=== PATIENT | male | born 1945 | race Caucasian/White ===

== ENCOUNTER → 2023-05-22 | Outpatient (CLI) | payer MEDICARE ==
[~2023-05-22] MED LIST: E-Z-GAS II EFFERVESCENT PACKET (SODIUM BICARB./CITRIC ACID/SIMETHICONE) As Ordered ONE; E-Z-HD 98% w/w 340GM SUSP BTL As Ordered ONE; E-Z-PAQUE 96% w/w SUSP 176GM BTL As Ordered ONE
== END ==
LOC: M RAD 10:55
PROVIDERS: ATTEND Registered Nurse
DX: R13.10 Dysphagia, unspecified (principal); K44.9 Diaphragmatic hernia without obstruction or gangrene; K22.2 Esophageal obstruction; R93.3 Abnormal findings on diagnostic imaging of other parts of digestive tract; Q39.4 Esophageal web

== ENCOUNTER 2023-07-02 13:14 | Emergency (ER) | payer MEDICARE ==
[~2023-07-02] VITALS: Ht 170.2 cm; Wt 51.6 kg
[2023-07-02 13:17] VITALS: BP 131/80; TEMP 99.1; O2SAT 97
[2023-07-02 15:40] LABS: BASO # 0.1 10^3/uL (0.0-0.2); BASO % 0.9 % (0.0-1.0); EOS # 0.3 10^3/uL (0.0-0.5); EOS % 3.4 % (0.0-3.0); HEMOGLOBIN 12.1 g/dl (13.5-17.5); LYMPH # 1.8 10^3/uL (1.5-5.0); LYMPH % 23.2 % (24.0-44.0); MEAN CORPUSCULAR HEMOGLOBIN 32.2 pg (27.0-33.0); MEAN CORPUSCULAR HGB CONC 33.6 g/dl (32.0-36.5); MEAN CORPUSCULAR VOLUME 95.7 fl (80.0-96.0); MONO # 0.6 10^3/uL (0.0-0.8); MONO % 7.9 % (2.0-8.0); NEUTROPHILS # 4.9 10^3/uL (1.5-8.5); NEUTROPHILS % 64.2 % (36.0-66.0); PLATELET COUNT, AUTOMATED 427 10^3/uL (150-450); RED BLOOD COUNT 3.76 10^6/uL (4.30-6.10); WHITE BLOOD COUNT 7.6 10^3/uL (4.0-10.0)
[2023-07-02 15:59] LABS: ALBUMIN 2.7 G/DL (3.2-5.2); ALKALINE PHOSPHATASE 76 U/L (46-116); ALT/SGPT 16 U/L (7.0-40); AST/SGOT 15 U/L (<34); BILIRUBIN,TOTAL 0.2 MG/DL (0.3-1.2); BLOOD UREA NITROGEN 23 MG/DL (9-23); CALCIUM LEVEL 8.6 MG/DL (8.3-10.6); CARBON DIOXIDE LEVEL 26 MMOL/L (20-31); CHLORIDE LEVEL 105 MMOL/L (98-107); CREATININE FOR GFR 0.81 MG/DL (0.70-1.30); GLOMERULAR FILTRATION RATE > 60.0 (>42); GLUCOSE, FASTING 106 MG/DL (74-106); POTASSIUM SERUM 4.2 MMOL/L (3.5-5.1); SODIUM LEVEL 138 MMOL/L (136-145); TOTAL PROTEIN 6.3 G/DL (5.7-8.2)
[2023-07-02] MEDS ORDERED: BACITRACIN OINTMENT 30GM TUBE TOP ONE (16:45)
== END 2023-07-02 16:55 | disposition home or self-care (01) ==
LOC: M ED 13:14
DX: Z48.02 Encounter for removal of sutures (principal); Z43.1 Encounter for attention to gastrostomy; F17.200 Nicotine dependence, unspecified, uncomplicated; J45.909 Unspecified asthma, uncomplicated

== ENCOUNTER → 2023-08-02 | Outpatient (CLI) | payer MEDICARE ==
[~2023-08-02] MED LIST changes: +ASPI1TAB77 PO; +ATOR40TA75 PO; +CVS1CAP2 PO; -E-Z-GAS II EFFERVESCENT PACKET (SODIUM BICARB./CITRIC ACID/SIMETHICONE) As Ordered ONE; -E-Z-HD 98% w/w 340GM SUSP BTL As Ordered ONE; -E-Z-PAQUE 96% w/w SUSP 176GM BTL As Ordered ONE; +ECOT81TA5 PO; +GNP650TA8 PO; +METO1TAB87 PO; +ONDA-84 PO; +PROC10TA5 PO
== END ==
LOC: M ONCR 12:47
PROVIDERS: ATTEND General Practice
DX: C15.5 Malignant neoplasm of lower third of esophagus (principal); F17.210 Nicotine dependence, cigarettes, uncomplicated; Z71.2 Person consulting for explanation of examination or test findings; Z79.82 Long term (current) use of aspirin; Z79.899 Other long term (current) drug therapy; Z80.0 Family history of malignant neoplasm of digestive organs; Z80.42 Family history of malignant neoplasm of prostate; Z80.8 Family history of malignant neoplasm of other organs or systems; Z88.0 Allergy status to penicillin; Z88.1 Allergy status to other antibiotic agents

== ENCOUNTER → 2023-08-06 | Outpatient (CLI) | payer MEDICARE ==
[~2023-08-06] MED LIST changes: +SENN-84 PO; +SUCR1TA PO
== END ==
LOC: M PLARAD 11:40
PROVIDERS: ATTEND Thoracic Surgery (Cardiothoracic Vascular Surgery)
DX: R59.0 Localized enlarged lymph nodes (principal); C15.5 Malignant neoplasm of lower third of esophagus
CPT/HCPCS: 78815; A9552

== ENCOUNTER → 2023-08-07 | Outpatient (CLI) | payer MEDICARE | LOC: M ONCR 09:58 | PROVIDERS: ATTEND General Practice | DX: C15.5 Malignant neoplasm of lower third of esophagus (principal); C77.2 Secondary and unspecified malignant neoplasm of intra-abdominal lymph nodes; F17.210 Nicotine dependence, cigarettes, uncomplicated; Z71.2 Person consulting for explanation of examination or test findings; Z79.82 Long term (current) use of aspirin; Z79.899 Other long term (current) drug therapy; Z88.0 Allergy status to penicillin; Z88.1 Allergy status to other antibiotic agents; Z92.21 Personal history of antineoplastic chemotherapy; Z95.828 Presence of other vascular implants and grafts ==

== ENCOUNTER → 2023-08-24 | Outpatient (CLI) | payer MEDICARE ==
[~2023-08-24] MED LIST changes: +FURO40TA2 PO; +OLAN1TAB16 PO; +SENN-183 PO; -SENN-84 PO
== END ==
LOC: M RAD 13:15
PROVIDERS: ATTEND Internal Medicine Hematology & Oncology
DX: C15.9 Malignant neoplasm of esophagus, unspecified (principal); R60.0 Localized edema

== ENCOUNTER 2023-09-30 13:16 | Inpatient (IN) | payer MEDICARE ==
[~2023-09-30] VITALS: Ht 170.2 cm; Wt 46.3 kg
[~2023-09-30 13:16] MED LIST changes: +CIPR500T39 PO; +COMBAER6 INH; +MIRT-84 PO; +TRAM50TA2 PO
[2023-09-30 14:33] LABS: BASO % 0.2 % (0.0-1.0); EOS % 0.4 % (0.0-3.0); HEMATOCRIT 35.9 % (42.0-52.0); HEMOGLOBIN 12.4 g/dl (13.5-17.5); LYMPH # 0.9 10^3/uL (1.5-5.0); LYMPH % 10.3 % (24.0-44.0); MEAN CORPUSCULAR HEMOGLOBIN 31.6 pg (27.0-33.0); MEAN CORPUSCULAR HGB CONC 34.5 g/dl (32.0-36.5); MEAN CORPUSCULAR VOLUME 91.6 fl (80.0-96.0); MONO # 0.8 10^3/uL (0.0-0.8); MONO % 9.7 % (2.0-8.0); NEUTROPHILS # 6.8 10^3/uL (1.5-8.5); NEUTROPHILS % 78.9 % (36.0-66.0); PLATELET COUNT, AUTOMATED 279 10^3/uL (150-450); RED BLOOD COUNT 3.92 10^6/uL (4.30-6.10); WHITE BLOOD COUNT 8.6 10^3/uL (4.0-10.0)
[2023-09-30 14:44] LABS: LIPASE 25 U/L (12-53)
[2023-09-30 14:45] LABS: CPK CREATINE PHOSPHOKINASE 40 U/L (46-171)
[2023-09-30 14:52] LABS: INR 1.32; PROTHROMBIN TIME 15.9 SECONDS (12.5-14.5)
[2023-09-30 15:01] LABS: ALBUMIN 2.2 G/DL (3.2-5.2); ALKALINE PHOSPHATASE 101 U/L (46-116); ALT/SGPT 21 U/L (7.0-40); AST/SGOT 23 U/L (<34); BILIRUBIN,DIRECT 0.2 MG/DL (<0.4); BILIRUBIN,TOTAL 0.5 MG/DL (0.3-1.2); BLOOD UREA NITROGEN 15 MG/DL (9-23); CALCIUM LEVEL 7.7 MG/DL (8.3-10.6); CARBON DIOXIDE LEVEL 35 MMOL/L (20-31); CHLORIDE LEVEL 88 MMOL/L (98-107); CK-MB VALUE MASS 1.3 NG/ML (<3.6); CREATININE FOR GFR 0.88 MG/DL (0.70-1.30); GLOMERULAR FILTRATION RATE > 60.0 (>42); GLUCOSE, FASTING 136 MG/DL (74-106); MB/CK RELATIVE INDEX 3.25 (< OR =4); POTASSIUM SERUM 2.3 MMOL/L (3.5-5.1); SODIUM LEVEL 128 MMOL/L (136-145); TOTAL PROTEIN 5.5 G/DL (5.7-8.2)
[2023-09-30] MEDS ORDERED: ISOVUE-370 76% 100ML VIAL As Ordered ONE (16:26)
[2023-09-30] MEDS: KCL 10MEQ/100ML SWI (KRUN) 10 MEQ in IV 1 EA IV ONE (16:43)
[2023-09-30 17:14] LABS: CK-MB VALUE MASS 1.3 NG/ML (<3.6)
[2023-09-30 17:16] LABS: MB/CK RELATIVE INDEX 3.42 (< OR =4)
[2023-09-30 17:47] LABS: RSV AMPLIFICATION NEGATIVE (NEGATIVE)
[2023-09-30] MEDS: LevoFLOXacin IV 750 MG in IV 1 EA IV ONE (17:59)
[2023-09-30] MEDS ORDERED: ATOR1TAB21 PO (18:11)
[2023-09-30] MEDS ORDERED: FURO40TA2 PO (18:11)
[2023-09-30] MEDS ORDERED: SENN8.6T28 PO (18:15)
[2023-09-30] MEDS ORDERED: COMBAER6 INH (18:15)
[2023-09-30] MEDS ORDERED: SUCR1TAB56 PO (18:15)
[2023-09-30] MEDS ORDERED: MIRT-84 PO (18:15)
[2023-09-30] MEDS ORDERED: OLAN1TAB16 PO (18:17)
[2023-09-30] MEDS ORDERED: LISI10TA22 PO (18:17)
[2023-09-30] MEDS ORDERED: BISO5TAB14 PO (18:17)
[2023-09-30] MEDS ORDERED: HOME MED LIST COMPLETE! XX SCH (18:35)
[2023-09-30 19:19] LABS: MAGNESIUM LEVEL 1.4 MG/DL (1.8-2.4)
[2023-09-30 19:28] LABS: PROCALCITONIN 0.15 ng/ml
[2023-09-30] MEDS: methylPREDNISolone 40MG 1ML VIAL IV SCH (19:59)
[2023-09-30] MEDS: PIPERACILLIN/TAZOBACTAM SOD 3.375 GM in D5W MINI-BAG PLUS 50 ML IV SCH (19:59)
[2023-09-30] MEDS: KCL 10MEQ/100ML SWI (KRUN) 10 MEQ in IV 1 EA IV SCH (20:00)
[2023-09-30] MEDS ORDERED: BUDESONIDE 0.5 MG/2 ML INHALATION SUSPENSION NEB SCH (20:00)
[2023-09-30] MEDS: ALBUTEROL SULFATE 2.5MG/0.5ML INH NEB SOLN NEB SCH (20:15)
[2023-09-30 22:10] LABS: HEMATOCRIT 35.9 % (42.0-52.0); HEMOGLOBIN 12.2 g/dl (13.5-17.5); MEAN CORPUSCULAR HEMOGLOBIN 31.5 pg (27.0-33.0); MEAN CORPUSCULAR VOLUME 92.8 fl (80.0-96.0); PLATELET COUNT, AUTOMATED 287 10^3/uL (150-450); RED BLOOD COUNT 3.87 10^6/uL (4.30-6.10); WHITE BLOOD COUNT 7.5 10^3/uL (4.0-10.0)
[2023-09-30 22:14] VITALS: BP 168/80; TEMP 97.9; O2SAT 94
[2023-09-30] MEDS: OLANZapine 5 MG TAB PO SCH (22:54)
[2023-09-30] MEDS: MAGNESIUM OXIDE 400MG TAB (MAG-OX) PO ONE (22:54)
[2023-09-30] MEDS: SUCRALFATE 1 GM TAB PO SCH (22:54)
[2023-09-30] MEDS: POTASSIUM CHLORIDE 10MEQ SR TABLET PO SCH (22:54)
[2023-09-30] MEDS: MIRTAZAPINE 15 MG TAB PO SCH (22:55)
[2023-09-30] MEDS: SENOKOT S TAB PO SCH (22:58)
[2023-09-30] MEDS: bisoproloL fumarate 5 MG TAB PO SCH (22:58)
[2023-09-30 23:00] VITALS: O2SAT 97
[2023-09-30 23:16] LABS: ALBUMIN 2.2 G/DL (3.2-5.2); ALKALINE PHOSPHATASE 102 U/L (46-116); ALT/SGPT 22 U/L (7.0-40); AST/SGOT 24 U/L (<34); BILIRUBIN,TOTAL 0.6 MG/DL (0.3-1.2); BLOOD UREA NITROGEN 15 MG/DL (9-23); CALCIUM LEVEL 7.7 MG/DL (8.3-10.6); CARBON DIOXIDE LEVEL 36 MMOL/L (20-31); CHLORIDE LEVEL 87 MMOL/L (98-107); CREATININE FOR GFR 0.91 MG/DL (0.70-1.30); GLOMERULAR FILTRATION RATE > 60.0 (>42); GLUCOSE, FASTING 119 MG/DL (74-106); MAGNESIUM LEVEL 1.4 MG/DL (1.8-2.4); POTASSIUM SERUM 2.4 MMOL/L (3.5-5.1); SODIUM LEVEL 128 MMOL/L (136-145); TOTAL PROTEIN 5.7 G/DL (5.7-8.2)
[2023-10-01] VITALS (12 sets, daily range): BP systolic 108–120; BP diastolic 65–75; TEMP 97.2–98.4; O2SAT 91–96
[2023-10-01] MEDS: ONDANSETRON 4MG 2ML VIAL IV PRN (02:26)
[2023-10-01 04:07] LABS: BLOOD UREA NITROGEN 15 MG/DL (9-23); CALCIUM LEVEL 7.7 MG/DL (8.3-10.6); CARBON DIOXIDE LEVEL 37 MMOL/L (20-31); CHLORIDE LEVEL 90 MMOL/L (98-107); CREATININE FOR GFR 0.92 MG/DL (0.70-1.30); GLOMERULAR FILTRATION RATE > 60.0 (>42); GLUCOSE, FASTING 144 MG/DL (74-106); MAGNESIUM LEVEL 1.5 MG/DL (1.8-2.4); POTASSIUM SERUM 2.9 MMOL/L (3.5-5.1); SODIUM LEVEL 130 MMOL/L (136-145)
[2023-10-01] MEDS: MAG SULF 1GM/100ML (MAG RUN) 1 GM in IV 1 EA IV SCH (04:44)
[2023-10-01] MEDS: POTASSIUM CHLORIDE 10% LIQ 20MEQ/15ML UDC PO ONE (04:45)
[2023-10-01 05:50] LABS: BASO % 0.2 % (0.0-1.0); HEMATOCRIT 33.9 % (42.0-52.0); HEMOGLOBIN 11.6 g/dl (13.5-17.5); LYMPH # 0.4 10^3/uL (1.5-5.0); LYMPH % 6.8 % (24.0-44.0); MEAN CORPUSCULAR HEMOGLOBIN 31.5 pg (27.0-33.0); MEAN CORPUSCULAR HGB CONC 34.2 g/dl (32.0-36.5); MEAN CORPUSCULAR VOLUME 92.1 fl (80.0-96.0); MONO # 0.2 10^3/uL (0.0-0.8); MONO % 3.2 % (2.0-8.0); NEUTROPHILS # 5.3 10^3/uL (1.5-8.5); NEUTROPHILS % 89.5 % (36.0-66.0); PLATELET COUNT, AUTOMATED 274 10^3/uL (150-450); RED BLOOD COUNT 3.68 10^6/uL (4.30-6.10); WHITE BLOOD COUNT 5.9 10^3/uL (4.0-10.0)
[2023-10-01 06:14] LABS: BLOOD UREA NITROGEN 16 MG/DL (9-23); CARBON DIOXIDE LEVEL 36 MMOL/L (20-31); CHLORIDE LEVEL 89 MMOL/L (98-107); GLOMERULAR FILTRATION RATE > 60.0 (>42); GLUCOSE, FASTING 157 MG/DL (74-106); SODIUM LEVEL 129 MMOL/L (136-145)
[2023-10-01] MEDS: KCL 10MEQ/100ML SWI (KRUN) 10 MEQ in IV 1 EA IV SCH (07:36)
[2023-10-01] MEDS: methylPREDNISolone 40MG 1ML VIAL IV SCH (08:29)
[2023-10-01] MEDS: ASPIRIN 81MG ENTERIC TABLET PO SCH (08:29)
[2023-10-01] MEDS: ATORVASTATIN 20 MG TAB PO SCH (08:30)
[2023-10-01 10:19] LABS: BLOOD UREA NITROGEN 16 MG/DL (9-23); CALCIUM LEVEL 8.1 MG/DL (8.3-10.6); CARBON DIOXIDE LEVEL 35 MMOL/L (20-31); CHLORIDE LEVEL 88 MMOL/L (98-107); CREATININE FOR GFR 1.05 MG/DL (0.70-1.30); GLOMERULAR FILTRATION RATE > 60.0 (>42); GLUCOSE, FASTING 170 MG/DL (74-106); MAGNESIUM LEVEL 2.3 MG/DL (1.8-2.4); POTASSIUM SERUM 3.3 MMOL/L (3.5-5.1); SODIUM LEVEL 129 MMOL/L (136-145)
== END 2023-10-01 12:33 | disposition left against medical advice (07) | DRG 186 ==
LOC: M ED 13:16 → EDBD 13:16 → M ED INP 18:50 → ENRESERV 20:43 → M PCU 22:07
PROVIDERS: ADMIT Internal Medicine Nephrology; ATTEND Internal Medicine Nephrology
DX: J90 Pleural effusion, not elsewhere classified (principal); J18.9 Pneumonia, unspecified organism; C15.9 Malignant neoplasm of esophagus, unspecified; I50.22 Chronic systolic (congestive) heart failure; Z68.1 Body mass index [BMI] 19.9 or less, adult; E46 Unspecified protein-calorie malnutrition; E87.1 Hypo-osmolality and hyponatremia; J44.0 Chronic obstructive pulmonary disease with (acute) lower respiratory infection; K59.00 Constipation, unspecified; I25.10 Atherosclerotic heart disease of native coronary artery without angina pectoris; I11.0 Hypertensive heart disease with heart failure; E78.5 Hyperlipidemia, unspecified; D64.9 Anemia, unspecified; G89.29 Other chronic pain; F17.200 Nicotine dependence, unspecified, uncomplicated; E87.6 Hypokalemia; L89.159 Pressure ulcer of sacral region, unspecified stage; Z79.82 Long term (current) use of aspirin; Z79.899 Other long term (current) drug therapy; Z88.0 Allergy status to penicillin; Z11.52 Encounter for screening for COVID-19; Z95.5 Presence of coronary angioplasty implant and graft

== ENCOUNTER 2023-10-31 09:05 | Emergency (ER) | payer MEDICARE ==
[~2023-10-31] VITALS: Ht 170.2 cm; Wt 52.7 kg
[~2023-10-31 09:05] MED LIST changes: +ATOR1TAB21 PO; +BISO5TAB14 PO; +LISI10TA22 PO; +SENN8.6T28 PO; +SUCR1TAB56 PO; +TRAM50TA2
[2023-10-31 09:49] LABS: BASO % 0.1 % (0.0-1.0); EOS % 0.1 % (0.0-3.0); HEMATOCRIT 36.3 % (42.0-52.0); HEMOGLOBIN 12.8 g/dl (13.5-17.5); LYMPH # 0.7 10^3/uL (1.5-5.0); LYMPH % 8.9 % (24.0-44.0); MEAN CORPUSCULAR HEMOGLOBIN 30.7 pg (27.0-33.0); MEAN CORPUSCULAR HGB CONC 35.3 g/dl (32.0-36.5); MEAN CORPUSCULAR VOLUME 87.1 fl (80.0-96.0); MONO # 0.5 10^3/uL (0.0-0.8); MONO % 5.8 % (2.0-8.0); NEUTROPHILS # 6.5 10^3/uL (1.5-8.5); NEUTROPHILS % 84.8 % (36.0-66.0); PLATELET COUNT, AUTOMATED 161 10^3/uL (150-450); RED BLOOD COUNT 4.17 10^6/uL (4.30-6.10); WHITE BLOOD COUNT 7.7 10^3/uL (4.0-10.0)
[2023-10-31 10:20] LABS: CPK CREATINE PHOSPHOKINASE 49 U/L (46-171)
[2023-10-31 10:24] LABS: BLOOD UREA NITROGEN 17 MG/DL (9-23); CALCIUM LEVEL 8.7 MG/DL (8.3-10.6); CARBON DIOXIDE LEVEL 38 MMOL/L (20-31); CHLORIDE LEVEL 81 MMOL/L (98-107); CK-MB VALUE MASS < 1.0 NG/ML (<3.6); CREATININE FOR GFR 0.73 MG/DL (0.70-1.30); GLOMERULAR FILTRATION RATE > 60.0 (>42); GLUCOSE, FASTING 101 MG/DL (74-106); MB/CK RELATIVE INDEX 2.04 (< OR =4); POTASSIUM SERUM 2.6 MMOL/L (3.5-5.1); SODIUM LEVEL 126 MMOL/L (136-145)
[2023-10-31 11:26] LABS: MAGNESIUM LEVEL 1.6 MG/DL (1.8-2.4)
[2023-10-31 11:28] LABS: CK-MB VALUE MASS 1.1 NG/ML (<3.6); MB/CK RELATIVE INDEX 2.75 (< OR =4)
[2023-10-31] MEDS: MORPHINE 10MG/0.5ML ORAL CONCENTRATE SOLUTION U/D SL ONE (11:37)
[2023-10-31] MEDS ORDERED: ISOVUE-370 76% 100ML VIAL As Ordered ONE (12:08)
[2023-10-31] MEDS: ONDANSETRON 4MG 2ML VIAL IV ONE (14:35)
[2023-10-31] MEDS ORDERED: KCL 10MEQ/100ML SWI (KRUN) 10 MEQ in IV 1 EA IV ONE (15:40)
[2023-10-31] MEDS: POTASSIUM CHLORIDE 10% LIQ 20MEQ/15ML UDC PO ONE (15:57)
[2023-10-31] MEDS ORDERED: POTA20LI16 PO (17:41)
[2023-10-31] MEDS ORDERED: MORP1SOL4 PO (17:41)
[2023-10-31 18:11] VITALS: BP 123/84; TEMP 97.6; O2SAT 94
[2023-11-01] MEDS ORDERED: ATIV1TAB7 PO (17:32)
== END 2023-10-31 18:15 | disposition home or self-care (01) ==
LOC: M ED 09:05
DX: R07.89 Other chest pain (principal); E87.6 Hypokalemia; C15.9 Malignant neoplasm of esophagus, unspecified; J43.9 Emphysema, unspecified; R91.8 Other nonspecific abnormal finding of lung field; I25.10 Atherosclerotic heart disease of native coronary artery without angina pectoris; I11.0 Hypertensive heart disease with heart failure; E78.5 Hyperlipidemia, unspecified; Z79.899 Other long term (current) drug therapy; Z88.0 Allergy status to penicillin
CPT/HCPCS: 71045; 71275; 74177; 80048; 82550; 82553; 83735; 84484; 85025; 93005; 93041; 94760; 96374; 99285; J2405; Q9967